=== PATIENT | female | born 1955 | race Caucasian/White ===

== ENCOUNTER → 2016-09-08 | Day surgery (SDC) | payer MEDICARE, OTHER ==
[~2016-09-08] MED LIST: BUPR100T8 PO; CELE200C PO; CITA40TA12 PO; COLE1TAB PO; CYCL10TA2 PO; DOCU100T11 PO; FERR325T58 PO; HYDR50TA6 PO; HYDROmorphone 2 MG/ML VIAL IV PRN; LEVO100T5 PO; LIDOCAINE 1% 1 ML SYRINGE. ID PRN; LIDOCAINE 2% PF Vial for OR 5 ML VIAL. ONE; MORPHINE SULFATE 2 MG/ML DISP.SYRIN. IV PRN; MULT-245 PO; OMEP20TA PO; ONDANSETRON PF 4 MG/2 ML VIAL. IV PRN; OXYC-250 PO; PROAIR HFA8.5 GM IH; PROCHLORPERAZINE 10 MG/2 ML VIAL. IV PRN; PROPOFOL 0 ML IV ONE; PROPOFOL 20 ML IV ONE; SERT100T PO; SERT100T8 PO; SERT50TA PO; TRAZ100T12 PO; VARE1TAB21 PO; WARF-78 PO; fentaNYL PF VIAL 100 MCG/2 ML VIAL IV PRN
[2016-09-08] MEDS: IV RINGERS,LACTATED 1000ML 1,000 ML IV SCH (12:41)
[2016-09-08 13:44] VITALS: BP 98/51
--- NOTE | 2016-09-09 01:28 | HP ---
ADMIT DATE: 09/08/2016 REFERRING PHYSICIAN: Mitzi Vallejo APRN HISTORY OF PRESENT ILLNESS: This is a 61-year-old female whose past medical history is significant for hypothyroidism, COPD, gastroesophageal reflux disease as well as osteoarthrosis, status post knee replacement, depression, dysphagia, ovarian cancer, status post hysterectomy, thyroid disease, who is seen with recurrent dysphagia for solids in the cervical sternal locations. Risk factors for reflux are positive for alcohol, nicotine and caffeine. She does take omeprazole 20 mg daily. There has been no melena, hematemesis and/or weight loss. With the continued dysphagia, she requests further evaluation and possible dilatation. PAST MEDICAL HISTORY: Hypertension, hyperlipidemia, COPD, osteoarthrosis, history of colon polyps, ovarian cancer. ALLERGIES: None. MEDICATIONS: Include ProAir, bupropion, hydrochlorothiazide, levothyroxine, omeprazole, Percocet, Zoloft and Chantix. SOCIAL HISTORY: She is a drinker and smoker. PAST SURGICAL HISTORY: Status post hysterectomy, tonsillectomy and knee replacement. REVIEW OF SYSTEMS: Per records. PHYSICAL EXAMINATION: GENERAL: Reveals a well-nourished, well-developed female. VITAL SIGNS: Temp is 97.4, pulse ____, respirations 18. HEENT: Reveals a normocephalic, atraumatic head. Pupils and extraocular movements are not tested. Sclerae anicteric. NECK: Supple. LUNGS: Clear. CARDIOVASCULAR: Reveals S1, S2 without S3, S4 or appreciable murmur. ABDOMEN: Reveals a soft abdomen with normal bowel sounds, without appreciable hepatosplenomegaly. Multiple surgical incisions. EXTREMITIES: Reveals no cyanosis, clubbing or edema. IMPRESSION: Dysphagia, heartburn, most likely secondary to gastroesophageal reflux disease, Zuñiga's, achalasia, malignancy, and/or eosinophilic esophagitis are on the differential as well as a Schatzki's ring. Therefore, recommend upper endoscopy, possible biopsy and dilatation. Risks and benefits of the procedure including the risk of hemorrhage or perforation at the time of the operation have been discussed with the patient. She is willing to proceed at this time. I would like to thank Mitzi Vallejo for allowing us to consult and participate in this patient's care. BRYAN FELIPE MD DR: OLGA/kendra JOB#: [id number] / [id number] MITZI Burgos APRN
--- NOTE | 2016-09-12 15:46 | PATHOLOGY ---
PATHOLOGY REPORT * * * * * * * * FINAL DIAGNOSIS: Esophagus, distal, biopsy: - Fragments of squamous epithelium with no significant histopathologic diagnosis. - No columnar epithelium present. (NDAEGEM:timothy; d/t: 09/12/2016) REPORT ELECTRONICALLY SIGNED BY: Aranza Lockwood M.D. DATE/TIME: 09/12/2016 15:46 * * * * * * * * GROSS PATHOLOGY: Received in formalin labeled "Allison Guerin distal esophagus biopsy," are five segments of guido soft tissue measuring 1.0 x 0.8 x 0.1 cm in aggregate dimensions and ranging from 0.2 to 0.8 cm in maximum dimension. The specimen is submitted entirely in cassette A1. (CAA; 09/09/2016) INITIAL CPT CODE(S): A; 38373 Professional services performed [place] [address] Technical services performed by [facility] at [address] [place] [address]. SPECIMEN(S) RECEIVED: A.Distal esophagus biopsy CLINICAL HISTORY: Abdominal pain PATIENT: ALLISON GUERIN /AGE: 5 1955 (Age: 61) PATIENT #: [id number] ALT CASE #: SPECIMEN COLLECTION DATE: 09/08/2016 SPECIMEN RECEIVED DATE: 09/08/2016 [facility] - [address] [place] [address] - PHONE: [phone] * * * END OF REPORT * * *
== END | disposition home or self-care (01) ==
LOC: ENDOS 12:11
PROVIDERS: ATTEND Internal Medicine Gastroenterology
DX: K22.2 Esophageal obstruction (principal); K21.0 Gastro-esophageal reflux disease with esophagitis; K29.50 Unspecified chronic gastritis without bleeding; J44.9 Chronic obstructive pulmonary disease, unspecified; J45.909 Unspecified asthma, uncomplicated; E03.9 Hypothyroidism, unspecified; F41.9 Anxiety disorder, unspecified; F32.9 Major depressive disorder, single episode, unspecified; Z90.710 Acquired absence of both cervix and uterus; Z96.652 Presence of left artificial knee joint; Z72.89 Other problems related to lifestyle; Z86.14 Personal history of Methicillin resistant Staphylococcus aureus infection
CPT/HCPCS: 43239; 43450; 88305; J2704

== ENCOUNTER → 2016-10-17 | Outpatient (CLI) | payer MEDICARE, OTHER ==
[2016-09-08 13:44] VITALS: BP 98/51
[~2016-10-17] MED LIST changes: -HYDROmorphone 2 MG/ML VIAL IV PRN; -LIDOCAINE 1% 1 ML SYRINGE. ID PRN; -LIDOCAINE 2% PF Vial for OR 5 ML VIAL. ONE; -MORPHINE SULFATE 2 MG/ML DISP.SYRIN. IV PRN; -OMEP20TA PO; +OMEP20TA8 PO; -ONDANSETRON PF 4 MG/2 ML VIAL. IV PRN; -OXYC-250 PO; +OXYC-328 PO; -PROCHLORPERAZINE 10 MG/2 ML VIAL. IV PRN; -PROPOFOL 0 ML IV ONE; -PROPOFOL 20 ML IV ONE; -fentaNYL PF VIAL 100 MCG/2 ML VIAL IV PRN
--- NOTE | 2016-10-17 09:45 | RAD ---
Examination: Gastric Emptying Scintigraphy. Comparison: None History: Bloating, epigastric pain for 2 months Radiopharmaceutical: 2 mCi Tc-99m sulfur colloid ingested with solid meal Findings: A routine solid-phase gastric emptying scintigraphy examination was performed. Anterior abdominal images were obtained. Geometric mean analysis was utilized to calculate a gastric emptying percentage. The total gastric emptying is 24%. T half of 120 minutes. Impression: Mild delay in gastric emptying.
== END | disposition home or self-care (01) ==
LOC: NM 06:36
PROVIDERS: ATTEND Internal Medicine Gastroenterology
DX: K30 Functional dyspepsia (principal)
CPT/HCPCS: 78264; A9541

== ENCOUNTER → 2016-10-25 | Outpatient (CLI) | payer MEDICARE, OTHER ==
[2016-09-08 13:44] VITALS: BP 98/51
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
== END | disposition home or self-care (01) ==
LOC: RAD 11:12
PROVIDERS: ATTEND Nurse Practitioner Family
DX: M25.512 Pain in left shoulder (principal); Y92.410 Unspecified street and highway as the place of occurrence of the external cause
CPT/HCPCS: 73030

== ENCOUNTER → 2016-10-25 | Outpatient (CLI) | payer MEDICARE, OTHER ==
[2016-09-08 13:44] VITALS: BP 98/51
--- NOTE | 2016-10-25 13:04 | RAD ---
Indication: Abdominal pain and bloating. Time of exam 12:25 PM There is a large amount of stool throughout the colon consistent with constipation. The bowel gas pattern appears nonobstructed. No free air is seen. The lungs are clear. Impression: Constipation. No other abnormality is detected.
== END | disposition home or self-care (01) ==
LOC: RAD 11:18
PROVIDERS: ATTEND Internal Medicine Gastroenterology
DX: R10.9 Unspecified abdominal pain (principal); R11.10 Vomiting, unspecified; R14.0 Abdominal distension (gaseous)
CPT/HCPCS: 74022

== ENCOUNTER → 2016-12-06 | Outpatient (CLI) | payer MEDICARE, OTHER ==
[2016-09-08 13:44] VITALS: BP 98/51
--- NOTE | 2016-12-06 15:41 | RAD ---
DATE: 12/06/2016 EXAM: DIGITAL SCREEN BILAT W/CAD HISTORY: Screening study. COMPARISON: 11/10/2009 This study was interpreted with the benefit of Computerized Aided Detection (CAD). FINDINGS: Digital MLO and CC mammograms of both breasts were obtained. Comparison study is dated 11/10/2009. The breast parenchyma is composed of scattered fibroglandular densities which can obscure a lesion on mammography (breast density code B). No spiculated mass is seen. No malignant appearing calcification or area of architectural distortion is noted. Since the previous examination there has been no significant interval change. IMPRESSION: BI-RADS Category 1, negative. There is no mammographic evidence of malignancy. Routine yearly screening mammography is recommended for follow-up. BI-RADS CATEGORY: 1 NEGATIVE RECOMMENDED FOLLOW-UP: 12M 12 MONTH FOLLOW-UP PQRS compliance statement: Patient information was entered into a reminder system with a target due date 12/06/2017 for the next mammogram. Mammography is a sensitive method for finding small breast cancers, but it does not detect them all and is not a substitute for careful clinical examination. A negative mammogram does not negate a clinically suspicious finding and should not result in delay in biopsying a clinically suspicious abnormality. "Our facility is accredited by the [employer] Mammography Program."
== END | disposition home or self-care (01) ==
LOC: MAMMO 12:44
PROVIDERS: ATTEND Family Medicine
DX: Z12.31 Encounter for screening mammogram for malignant neoplasm of breast (principal)
CPT/HCPCS: G0202; 77067

== ENCOUNTER 2017-10-08 23:20 | Emergency (ER) | payer OTHER, MEDICARE | END 2017-10-09 00:21 | disposition home or self-care (01) | LOC: ER 23:20 | DX: S93.401A Sprain of unspecified ligament of right ankle, initial encounter (principal); X50.9XXA Other and unspecified overexertion or strenuous movements or postures, initial encounter; Y93.89 Activity, other specified; Y99.8 Other external cause status; Y92.89 Other specified places as the place of occurrence of the external cause | CPT/HCPCS: 73610; 99284 ==

== ENCOUNTER → 2018-02-15 | Day surgery (SDC) | payer OTHER ==
[~2018-02-15] MED LIST changes: +ACET-704 PO; +IV RINGERS,LACTATED 1000ML 1,000 ML IV SCH; +LIDOCAINE 1% PF 2 ML VIAL. ID PRN; +MELO15TA23 PO; +MIDAZOLAM HCL/PF 2 MG/2 ML VIAL. IV PRN; +PROPOFOL 20 ML IV ONE; +TRAZ-86 PO; -TRAZ100T12 PO; +fentaNYL PF VIAL 100 MCG/2 ML VIAL IV PRN
[2018-02-15 13:50] VITALS: BP 139/81
--- NOTE | 2018-02-16 04:24 | CONS ---
DATE OF CONSULTATION: 02/15/2018 REFERRING PHYSICIAN: Mitzi Vallejo APRN REASON: Recurrent dysphagia. HISTORY OF PRESENT ILLNESS: A 62-year-old female with past medical history significant for hypothyroidism, COPD, gastroesophageal reflux disease, osteoporosis, and history of colon polyps, was seen with recurrent dysphagia for solids sticking in the subcervical location. Previous upper endoscopy with dilatation was extremely helpful, worked until recently, approximately 18 months later, mainly for solids. Weight and appetite were stable. There has been no change in weight, no bleeding. She is without additional complaints. PAST MEDICAL HISTORY: Hypothyroidism, COPD, osteoarthrosis, history of colonic polyps, GERD. ALLERGIES: None. MEDICATIONS: Include albuterol, levothyroxine, meloxicam, omeprazole, and Zoloft. FAMILY AND SOCIAL HISTORY: Significant for colon cancer in grandfather, colon polyps in multiple family members, myocardial infarctions. REVIEW OF SYSTEMS: Per records. SOCIAL HISTORY: She is a smoker and drinker. PAST SURGICAL HISTORY: Status post tonsillectomy, knee replacement, hiatal hernia surgery, hysterectomy, and inguinal hernia repair. PHYSICAL EXAMINATION: GENERAL: Reveals a well-nourished, well-developed female who is alert, cooperative, in no acute distress. VITAL SIGNS: Temperature 98.3, pulse 65, respiratory rate is 18. HEENT: Normocephalic and atraumatic. Pupils and extraocular movements are not tested. Sclerae are anicteric. NECK: Supple. LUNGS: Clear. CARDIOVASCULAR: Reveals an S1, S2 with appreciable murmur. ABDOMEN: Soft abdomen, normal bowel sounds without appreciable hepatosplenomegaly. EXTREMITIES: Reveal no cyanosis, clubbing, edema. IMPRESSION: Dysphagia, most likely secondary to recurrent Schatzki's ring, achalasia, malignancy, and eosinophilic esophagitis are on the differential. Recommend upper endoscopy with possible biopsy and dilatation. Risks and benefits have been discussed. The patient is willing to proceed at this time. BRYAN FELIPE MD DR: OLGA/kendra JOB#: [id number] / [id number]
== END | disposition home or self-care (01) ==
LOC: ENDOS 12:02
PROVIDERS: ATTEND Internal Medicine Gastroenterology
DX: K22.2 Esophageal obstruction (principal); K21.0 Gastro-esophageal reflux disease with esophagitis; K29.50 Unspecified chronic gastritis without bleeding; E03.9 Hypothyroidism, unspecified; J44.9 Chronic obstructive pulmonary disease, unspecified; M19.90 Unspecified osteoarthritis, unspecified site; Z86.010 Personal history of colon polyps; Z79.899 Other long term (current) drug therapy; Z83.71 Family history of colonic polyps; Z82.49 Family history of ischemic heart disease and other diseases of the circulatory system; Z72.89 Other problems related to lifestyle; F17.200 Nicotine dependence, unspecified, uncomplicated; Z90.710 Acquired absence of both cervix and uterus; Z98.890 Other specified postprocedural states; Z96.652 Presence of left artificial knee joint
CPT/HCPCS: 43235; 43450; J2704

== ENCOUNTER → 2018-03-21 | Outpatient (CLI) | payer OTHER ==
[2018-02-15 13:50] VITALS: BP 139/81
[~2018-03-21] MED LIST changes: -IV RINGERS,LACTATED 1000ML 1,000 ML IV SCH; -LIDOCAINE 1% PF 2 ML VIAL. ID PRN; -MIDAZOLAM HCL/PF 2 MG/2 ML VIAL. IV PRN; -PROPOFOL 20 ML IV ONE; -fentaNYL PF VIAL 100 MCG/2 ML VIAL IV PRN
--- NOTE | 2018-03-21 16:30 | RAD ---
Chest, 2 views, 03/21/2018: HISTORY: Shortness of breath, COPD The heart size and pulmonary vascularity are normal. No pulmonary infiltrate is seen. There is no evidence of pleural fluid. Vertebroplasty change is noted at approximately the L1 level. IMPRESSION: No acute cardiopulmonary abnormality is detected. Electronically signed by: Shay Bagley MD (03/21/2018 4:26 PM) [facility]
== END | disposition home or self-care (01) ==
LOC: RAD 11:28
PROVIDERS: ATTEND Internal Medicine Critical Care Medicine
DX: R06.02 Shortness of breath (principal); J44.9 Chronic obstructive pulmonary disease, unspecified; F17.210 Nicotine dependence, cigarettes, uncomplicated
CPT/HCPCS: 71046

== ENCOUNTER → 2018-03-28 | Outpatient (CLI) | payer OTHER ==
[2018-02-15 13:50] VITALS: BP 139/81
[~2018-03-28] MED LIST changes: -OXYC-328 PO; +OXYC1TAB22 PO; +ZOLPIDEM 5 MG TABLET. PO ONE
--- NOTE | 2018-03-29 13:50 | SLEEP ---
DATE OF STUDY: 03/28/2018 ATTENDING PHYSICIAN: Dr. Juana Baig. The patient is 62-year-old who weighs 160 pounds with a BMI of 30. The patient's Cedar score was 9. The patient underwent sleep study at [facility]. This was a diagnostic study. During the night study, the patient spent 411 minutes in bed and slept for 335 minutes with a sleep efficiency of 81%. Sleep latency was 12 minutes with a REM latency of 129 minutes. Overall, sleep architecture showed normal stage 1 sleep, increased stage 2 sleep, increased slow wave and reduced REM sleep. During the night study, the patient had only 1 obstructive apnea, 9 mixed apneas, no central apneas and 10 hypopneas. The patient's apnea hypopnea index was only 4 per hour for the entire night. Supine index 1 per hour and REM index of 17 per hour. Review of nocturnal oximetry study revealed an average oxygen saturation of 91% with the lowest of 80%. 39 minutes were spent in oxygen saturation of less than 90%. There was a sustained pattern of hypoxia suggesting hypoventilation. EKG monitoring revealed a paced rhythm, average heart rate of 60 beats per minute. PLMS were seen at index of 153 per hour and 17 per hour caused EEG arousals. Due to low AHI, the patient did not meet the split night criteria for CPAP initiation. IMPRESSION: 1. No clinically significant sleep disorder breathing. The patient's AHI for the entire night was 4 per hour. 2. Severe PLMS at an index of 153 per hour and 17 per hour caused EEG arousals. 3. Sustained nocturnal hypoxia suggesting hypoventilation. RECOMMENDATIONS: 1. The patient did not meet the split night criteria for CPAP initiation. 2. The patient would benefit from 1-2 liters of oxygen at nighttime. 3. The patient should also be further evaluated for symptoms of restless legs during the day and if present, it can be treated with dopaminergic agonist agents. 4. Weight loss is advised. 5. Avoid SIDE LASTER TACK depressants. PARISH JOSE MD DR: MIRACLE/kendra JOB#: [id number] / [id number] JUANA Snowden MD
== END | disposition home or self-care (01) ==
LOC: SLPLAB 18:48
PROVIDERS: ATTEND Internal Medicine Critical Care Medicine
DX: G47.30 Sleep apnea, unspecified (principal)
CPT/HCPCS: 95810

== ENCOUNTER 2018-07-10 10:07 | Emergency (ER) | payer OTHER ==
[~2018-07-10] VITALS: Ht 157.5 cm; Wt 68.9 kg
[~2018-07-10 10:07] MED LIST changes: +ALBU2.5V8 IH; -PROAIR HFA8.5 GM IH; -ZOLPIDEM 5 MG TABLET. PO ONE
--- NOTE | 2018-07-10 11:10 | RAD ---
Three-view left knee and three-view left ankle dated 07/10/2018. No comparison available. Clinical data indication: Pain after fall yesterday. FINDINGS: 3 views left knee show evidence of prior total knee arthroplasty with longstem femoral and tibial components. No periprosthetic fracture or malalignment. Postsurgical changes of the patella. No apparent joint effusion. 3 views of left ankle show normal bony alignment. No displaced fracture. No acute osseous or articular abnormality. Suspected small ankle joint effusion with diffuse soft tissue swelling. Mild degenerative change of the joints of the midfoot. Talar dome is intact. Subtle radiolucency at the tip of the medial malleolus. IMPRESSION: 1. Possible small nondisplaced fracture through the tip of the medial malleolus. 2. Ankle joint effusion with diffuse soft tissue swelling. 3. No apparent acute abnormality of the knee. Status post total knee arthroplasty. Electronically signed by: Scott Kiser MD (07/10/2018 11:07 AM) [facility]
[2018-07-10] MEDS ORDERED: HYDR-3164 PO (12:41)
--- NOTE | 2018-07-10 12:41 | PHYS DOC ---
Past Medical History Past Medical History: Anxiety, COPD Additional Past Medical Histor: thyroid, gastric ulcer Past Surgical History: Hysterectomy, Knee Replacement, Tonsillectomy Alcohol Use: Occasionally Drug Use: None Adult General Chief Complaint Chief Complaint: MECHANICAL FALL HPI HPI Patient is a 62 year old female with history of COPD, anxiety, who presents to the ED today complaining of 8 out of 10 left knee and left ankle pain that began yesterday after she tripped on a hunger at the [employer] and fell. Patient denies hitting her head on the ground, denies any loss of consciousness. She states the pain is worse on weight-bearing. Describes the pain as sharp and intermittent Review of Systems Review of Systems Constitutional: Denies fever or chills [] Musculoskeletal: Reports left ankle and left knee pain Integument: Denies rash or skin lesions [] Neurologic: Denies headache, focal weakness or sensory changes [] All other systems were reviewed and found to be within normal limits, except as documented in this note. Allergies Allergies Allergies Coded Allergies Type Severity Reaction Last Updated Verified No Known Medication Allergies Allergy Unknown 02/15/18 Yes Physical Exam Physical Exam Constitutional: Well developed, well nourished, no acute distress, non-toxic appearance. [] Skin: Warm, dry, no erythema, no rash. [] Back: No tenderness, no CVA tenderness. [] Extremities: Left ankle and left knee with no obvious deformity, old healed surgical incision noted midline left anterior knee. Full range of motion to the left knee, full range of motion to the left ankle. Tenderness on palpation of the left lateral during physical exam. Full range of motion to the left toes. + 2 left pedal pulse. Cap refill less than 2 seconds the left lower extremity. Neurologic: Alert and oriented X 3, normal motor function, normal sensory function, no focal deficits noted. [] Psychologic: Affect normal, judgement normal, mood normal. [] Current Patient Data Vital Signs Vital Signs Date Time Temp Pulse Resp B/P (MAP) Pulse Ox O2 Delivery O2 Flow Rate FiO2 07/10/18 10:16 97.2 70 22 132/80 (97) 94 Room Air 97.2 EKG EKG [] Radiology/Procedures Radiology/Procedures []PROCEDURE: ANKLE LEFT 3V Three-view left knee and three-view left ankle dated 07/10/2018. No comparison available. Clinical data indication: Pain after fall yesterday. FINDINGS: 3 views left knee show evidence of prior total knee arthroplasty with longstem femoral and tibial components. No periprosthetic fracture or malalignment. Postsurgical changes of the patella. No apparent joint effusion. 3 views of left ankle show normal bony alignment. No displaced fracture. No acute osseous or articular abnormality. Suspected small ankle joint effusion with diffuse soft tissue swelling. Mild degenerative change of the joints of the midfoot. Talar dome is intact. Subtle radiolucency at the tip of the medial malleolus. IMPRESSION: 1. Possible small nondisplaced fracture through the tip of the medial malleolus. 2. Ankle joint effusion with diffuse soft tissue swelling. 3. No apparent acute abnormality of the knee. Status post total knee arthroplasty. Electronically signed by: Scott Kiser MD (07/10/2018 11:07 AM) [facility] DICTATED and SIGNED BY: SCOTT KISER MD DATE: 07/10/18 110 Course & Med Decision Making Course & Med Decision Making Pertinent Labs and Imaging studies reviewed. (See chart for details) This is a 62-year-old female presenting to the ED today with left knee and left ankle pain status post falling yesterday. Left knee x-rays interpreted by radiologist are negative for any acute findings, left ankle x-rays were noted for possible small nondisplaced fracture through the tip of the medial malleolus. Patient was placed in a posterior leg splint by the technical delivery manager, neurovascular exam done by me is normal. Crutches provided. Ice elevation encouraged. Follow-up with orthopedic doctor in the course of this week. Dragon Disclaimer Dragon Disclaimer This electronic medical record was generated, in whole or in part, using a voice recognition dictation system. Departure Departure Impression: Primary Impression: Fall from standing Additional Impressions: Contusion of left knee Medial malleolar fracture Disposition: 01 HOME, SELF-CARE Condition: STABLE Referrals: ANNA GAMBINO MD (PCP) MADELYN LAUREN MD call his office today and set up a follow up appointment Patient Instructions: Ankle Fracture, [id number] Additional Instructions: You were evaluated in the emergency room for knee and ankle pain after falling. Your left ankle x-ray shows you possibly could have an ankle fracture. We put you in a splint. Please contact the provided Orthopedic doctor's office today or [facility] and set up a follow-up appointment. Try to ice and elevate the extremity. Take the prescribed pain medicine as needed for pain. Scripts Hydrocodone/Apap 5-325 (NORCO 5-325 TABLET) 1 Each Tablet 1 TAB PO Q4-6HRS, #12 TAB Prov: SEBASTIAN PEREZ APRN 07/10/18 Problem Qualifiers Primary Impression: Fall from standing Encounter type: initial encounter Qualified Codes: W19.XXXA - Unspecified fall, initial encounter Additional Impressions: Contusion of left knee Encounter type: initial encounter Qualified Codes: S80.02XA - Contusion of left knee, initial encounter Medial malleolar fracture Encounter type: initial encounter Fracture type: closed Fracture alignment : nondisplaced Laterality: left Qualified Codes: S82.55XA - Nondisplaced fracture of medial malleolus of left tibia, initial encounter for closed fracture SEBASTIAN PEREZ APRN Jul 10, 2018 12:41
[2018-07-10 12:52] VITALS: BP 156/80
== END 2018-07-10 12:53 | disposition home or self-care (01) ==
LOC: ER 10:07
DX: S82.55XA Nondisplaced fracture of medial malleolus of left tibia, initial encounter for closed fracture (principal); S80.02XA Contusion of left knee, initial encounter; J44.9 Chronic obstructive pulmonary disease, unspecified; W01.0XXA Fall on same level from slipping, tripping and stumbling without subsequent striking against object, initial encounter; Y93.89 Activity, other specified; Y92.512 Supermarket, store or market as the place of occurrence of the external cause; Y99.8 Other external cause status
CPT/HCPCS: 29515; 73562; 73610; 99283

== ENCOUNTER 2020-01-01 11:16 | Emergency (ER) | payer MEDICARE, MEDICAID ==
[~2020-01-01] VITALS: Ht 157.5 cm; Wt 74.1 kg
[~2020-01-01 11:16] MED LIST changes: +HYDR-3164 PO; +TRAZ-123 PO; -TRAZ-86 PO; -WARF-78 PO; +WARF5TAB2 PO
[2020-01-01] MEDS ORDERED: LIDOCAINE 1%/EPI 1:100,000 20 ML VIAL. INJ ONE (12:00)
[2020-01-01] MEDS ORDERED: DIPH,PERTUSS(ACELL),TET VAC/PF 0.5 ML SYRINGE. VAX IM ONE (12:00)
--- NOTE | 2020-01-01 12:53 | RAD ---
CT HEAD INDICATION: Reason: HIT HEAD ON CAPINET DOOR / Spl. Instructions: / History: COMPARISON: None Available. Exposure: One or more of the following individualized dose reduction techniques were utilized for this examination: 1. Automated exposure control 2. Adjustment of the mA and/or kV according to patient size 3. Use of iterative reconstruction technique TECHNIQUE: 5 mm contiguous axial images were obtained from the skull base to the vertex in both bone and soft tissue algorithm. FINDINGS: No abnormal attenuation within the brain parenchyma. No evidence of acute intracranial hemorrhage. No extra-axial fluid collections. No mass effect or midline shift. Ventricular size is appropriate. Basal cisterns are patent. No fractures identified.Mobley-white differentiation is preserved.Globes and orbits are within normal limits. Opacification of the left mastoid air cells. IMPRESSION: 1. No acute intracranial findings. 2. Opacification of the left mastoid air cells with fluid in the mastoid air cells or chronic otitis media. Electronically signed by: Rick Winslow MD (01/01/2020 12:50 PM) [id number]
[2020-01-01 13:10] VITALS: BP 146/65
--- NOTE | 2020-01-01 13:30 | PHYS DOC ---
Past Medical History Past Medical History: Anxiety, COPD Additional Past Medical Histor: thyroid, gastric ulcer Past Surgical History: Hysterectomy, Knee Replacement, Tonsillectomy Smoking Status: Current Every Day Smoker Alcohol Use: Occasionally Drug Use: None General Adult EDM: Chief Complaint: LACERATION/AVULSION HPI: HPI: Patient is a 64 year old female who was brought here by EMS from home due to head injury. Patient opened a kitchen cabinet, she forgot that it was open and when she stood up she hit her head against the cabinet door. She denies loss of consciousness. Not sure when HER LAST TETANUS SHOT WAS. Review of Systems: Review of Systems: Constitutional: Denies fever or chills. [] Eyes: Denies change in visual acuity. [] HENT: Denies nasal congestion or sore throat. [] Respiratory: Denies cough or shortness of breath. [] Cardiovascular: Denies chest pain or edema. [] GI: Denies abdominal pain, nausea, vomiting, bloody stools or diarrhea. [] : Denies dysuria. [] Musculoskeletal: Denies back pain or joint pain. [] Integument: Denies rash. [] Neurologic: Positive for headache, focal weakness or sensory changes. [] Endocrine: Denies polyuria or polydipsia. [] Lymphatic: Denies swollen glands. [] Psychiatric: Denies depression or anxiety. [] Heart Score: Risk Factors: Risk Factors: DM, Current or recent (<one month) smoker, HTN, HLP, family history of CAD, obesity. Risk Scores: Score 0 - 3: 2.5% MACE over next 6 weeks - Discharge Home Score 4 - 6: 20.3% MACE over next 6 weeks - Admit for Clinical Observation Score 7 - 10: 72.7% MACE over next 6 weeks - Early Invasive Strategies Current Medications: Current Medications Medications (Trade) Dose Ordered Sig/Bishnu Start Time Stop Time Status Last Admin Dose Admin Diphtheria/ Tetanus/Acell Pertussis (ADACEL TDap SYRINGE) 0.5 ml ONCE ONCE 01/01/20 12:00 01/01/20 12:04 DC Lidocaine/ Epinephrine (LIDOCAINE 1%-EPI 1:100,000 Multi-Dose) 20 ml 1X ONCE 01/01/20 12:00 01/01/20 12:04 DC 01/01/20 12:24 20 ML Allergies: Allergies: Allergies Coded Allergies Type Severity Reaction Last Updated Verified No Known Medication Allergies Allergy Unknown 02/15/18 Yes Physical Exam: PE: Constitutional: Well developed, well nourished, no acute distress, non-toxic appearance. [] HENT: Normocephalic, 4 cm linear laceration on anterior scalp area, actively bleeding, bilateral external ears normal, oropharynx moist, no oral exudates, nose normal. [] Eyes: PERRLA, EOMI, conjunctiva normal, no discharge. [] Neck: Normal range of motion, no tenderness, supple, no stridor. [] Cardiovascular:Heart rate regular rhythm, no murmur [] Lungs & Thorax: Bilateral breath sounds clear to auscultation [] Abdomen: Bowel sounds normal, soft, no tenderness, no masses, no pulsatile masses. [] Skin: Warm, dry, no erythema, no rash. [] Back: No tenderness, no CVA tenderness. [] Extremities: No tenderness, no cyanosis, no clubbing, ROM intact, no edema. [] Neurologic: Alert and oriented X 3, normal motor function, normal sensory function, no focal deficits noted. [] Psychologic: Affect normal, judgement normal, mood normal. [] Current Patient Data: Vital Signs: Vital Signs Date Time Temp Pulse Resp B/P (MAP) Pulse Ox O2 Delivery O2 Flow Rate FiO2 01/01/20 11:20 98.1 93 20 177/98 (124) 95 Room Air 98.1 EKG: EKG: [] Radiology/Procedures: Radiology/Procedures: [facility] [address] [place] [address] IMAGING REPORT Signed PATIENT: NADIA QUILES ACCOUNT: [id number] : 1955 LOCATION: ER AGE: 64 SEX: F EXAM STATUS: REG ER ORD. PHYSICIAN: HARSH CHAVEZ DO REASON: HIT HEAD ON CAPINET DOOR PROCEDURE: CT HEAD WO CONTRAST CT HEAD INDICATION: Reason: HIT HEAD ON CAPINET DOOR / Spl. Instructions: / History: COMPARISON: None Available. Exposure: One or more of the following individualized dose reduction techniques were utilized for this examination: 1. Automated exposure control 2. Adjustment of the mA and/or kV according to patient size 3. Use of iterative reconstruction technique TECHNIQUE: 5 mm contiguous axial images were obtained from the skull base to the vertex in both bone and soft tissue algorithm. FINDINGS: No abnormal attenuation within the brain parenchyma. No evidence of acute intracranial hemorrhage. No extra-axial fluid collections. No mass effect or midline shift. Ventricular size is appropriate. Basal cisterns are patent. No fractures identified.Mobley-white differentiation is preserved.Globes and orbits are within normal limits. Opacification of the left mastoid air cells. IMPRESSION: 1. No acute intracranial findings. 2. Opacification of the left mastoid air cells with fluid in the mastoid air cells or chronic otitis media. Electronically signed by: Rick Winslow MD (01/01/2020 12:50 PM) [id number] DICTATED and SIGNED BY: RICK WINSLOW MD DATE: 01/01/20 1250 Laceration Procedure: Location:anterior scalp Anesthesia: 20 ml of 1% lidocaine with epi total lenght of laceration: 4 cm Number of sutures : 8 hortensia Suture Material: staple Technique: simple interruptus Patient tolerated procedure well. The wound was dressed with: gauze Course & Med Decision Making: Course & Med Decision Making Pertinent Labs and Imaging studies reviewed. (See chart for details) [] Dragon Disclaimer: Dragon Disclaimer: This electronic medical record was generated, in whole or in part, using a voice recognition dictation system. Departure Departure Impression: Primary Impression: Scalp laceration Additional Impression: Head injury Disposition: 01 HOME, SELF-CARE Condition: IMPROVED Referrals: ANNA GAMBINO MD (PCP) please follow up with your doctor in 7 days for hortensia removal Patient Instructions: Head Injury, Adult, Laceration Care, Adult, Staple Care and Removal Additional Instructions: Thank you for visiting our Emergency Department. We appreciate you trusting us with your care. If any additional problems come up don't hesitate to return to visit us. Please follow up with your primary care provider so they can plan additional care if needed and know about the problem that you had. If symptoms worsen come back to the Emergency Department. Any concerning symptoms that start such as chest pain, shortness of air, weakness or numbness on one side of the body, running high fevers or any other concerning symptoms return to the ER. Biation of Admission Dx: Justifications for Admission: Justification of Admission Dx: N/A HARSH CHAVEZ DO Jan 01, 2020 13:30
== END 2020-01-01 13:45 | disposition home or self-care (01) ==
LOC: ER 11:16
DX: S01.01XA Laceration without foreign body of scalp, initial encounter (principal); J44.9 Chronic obstructive pulmonary disease, unspecified; F17.200 Nicotine dependence, unspecified, uncomplicated; W22.8XXA Striking against or struck by other objects, initial encounter; Y93.89 Activity, other specified; Y92.090 Kitchen in other non-institutional residence as the place of occurrence of the external cause; Y99.8 Other external cause status
CPT/HCPCS: 12002; 70450; 90471; 90715; 99284; J3490

== ENCOUNTER → 2021-05-12 | Day surgery (SDC) | payer OTHER ==
[~2021-05-12] VITALS: Ht 157.5 cm; Wt 81.0 kg
[~2021-05-12] MED LIST changes: +CYCL10TA19 PO; -CYCL10TA2 PO; +FLUT1BLS15 IH; -HYDR50TA6 PO; +HYDR50TA9 PO; +IV RINGERS,LACTATED 1000ML 1,000 ML IV SCH; +PROPOFOL 10 MG/ML (20ML) VIAL. IV ONE; +SERT-268 PO; -SERT100T8 PO
[2021-05-12 07:25] VITALS: BP 127/86
[2021-05-12 09:04] VITALS: BP 129/68
--- NOTE | 2021-05-12 15:59 | CONS ---
DATE OF CONSULTATION: 05/12/2021 REASON FOR CONSULTATION: Epigastric abdominal pain, colorectal screening. HISTORY OF PRESENT ILLNESS: A 65-year-old female whose past medical history is significant for hypothyroidism, gastroesophageal reflux disease as well as hypertension, history of esophageal stricture, seen for recurrent epigastric pain. It is worse with meals, been maintained on Prilosec 20 mg b.i.d. for reflux and a stricture with persistent discomfort. Weight has been stable despite poor appetite. She has also had a family history of colon cancer, is here for a screening colon. With continued issues, she requests additional evaluation. PAST MEDICAL HISTORY: Asthma, hypothyroidism, GERD, COPD. ALLERGIES: None. MEDICATIONS: Include Trelegy Ellipta, levothyroxine, omeprazole. PAST SURGICAL HISTORY: Hernia repair, joint replacement, hiatal hernia surgery, knee replacement. FAMILY HISTORY: Significant for colon cancer. REVIEW OF SYSTEMS: Per records. PHYSICAL EXAMINATION: GENERAL: Reveals a well-nourished, well-developed female who is alert, cooperative, in no acute distress. VITAL SIGNS: Temperature 98.3, pulse 70, respiratory rate 20. LUNGS: Clear. CARDIOVASCULAR: Reveals an S1, S2, without S3, S4 or appreciable murmur. ABDOMEN: Reveals a soft abdomen. Normoactive bowel sounds without appreciable hepatosplenomegaly with epigastric tenderness to deep palpation. EXTREMITIES: Reveals no cyanosis, clubbing or edema. IMPRESSION AND PLAN: 1. Epigastric abdominal pain with history of stricture, peptic ulcer disease, gallbladder disease malignancy in the differential. Recommend upper endoscopy. 2. Colorectal screening. Risks and benefits of procedure including risk of hemorrhage and perforation were discussed. The patient is willing to proceed at this time. [place] DR: Amanda TID: [id number]
== END | disposition home or self-care (01) ==
LOC: ENDOS 07:05
PROVIDERS: ATTEND Internal Medicine Gastroenterology
DX: Z12.11 Encounter for screening for malignant neoplasm of colon (principal); R10.13 Epigastric pain; K64.0 First degree hemorrhoids; K57.30 Diverticulosis of large intestine without perforation or abscess without bleeding; K29.50 Unspecified chronic gastritis without bleeding; K31.89 Other diseases of stomach and duodenum; K63.89 Other specified diseases of intestine; K21.9 Gastro-esophageal reflux disease without esophagitis; E03.9 Hypothyroidism, unspecified; I11.0 Hypertensive heart disease with heart failure; I50.9 Heart failure, unspecified; J43.9 Emphysema, unspecified; G47.30 Sleep apnea, unspecified; E11.9 Type 2 diabetes mellitus without complications; M19.90 Unspecified osteoarthritis, unspecified site; M81.0 Age-related osteoporosis without current pathological fracture; F41.9 Anxiety disorder, unspecified; F32.9 Major depressive disorder, single episode, unspecified; F17.210 Nicotine dependence, cigarettes, uncomplicated; Z80.0 Family history of malignant neoplasm of digestive organs; Z79.899 Other long term (current) drug therapy; Z98.890 Other specified postprocedural states; Z90.710 Acquired absence of both cervix and uterus; Z72.89 Other problems related to lifestyle
CPT/HCPCS: 43235; 82962; G0105; J2704; 45378

== ENCOUNTER → 2021-05-27 | Outpatient (CLI) | payer OTHER ==
[2021-05-12 09:04] VITALS: BP 129/68
[~2021-05-27] MED LIST changes: -IV RINGERS,LACTATED 1000ML 1,000 ML IV SCH; -PROPOFOL 10 MG/ML (20ML) VIAL. IV ONE
--- NOTE | 2021-05-27 08:36 | RAD ---
EXAM: Abdomen sonogram. HISTORY: Epigastric pain. TECHNIQUE: Sonographic imaging of the abdomen was performed. COMPARISON: None. FINDINGS: The liver is normal in size. No focal hepatic lesion is seen. There is mild hepatic steatos is. The gallbladder is unremarkable. The common bile duct is normal in caliber. The pancreas and infe rior vena cava are obscured due to bowel gas. The right kidney is unremarkable. IMPRESSION: Suspected mild hepatic steatosis. No acute sonographic finding. Electronically signed by: Lotus Briones MD (05/27/2021 8:34 AM) [id number]
--- NOTE | 2021-05-27 09:24 | RAD ---
HEPATOBILIARY SCAN WITH EJECTION FRACTION 05/27/2021 9:21 AM History: Epigastric pain COMPARISON STUDY: Right upper quadrant ultrasound, earlier today Procedure: Serial static images are obtained of the liver and biliary system in the frontal projectio n following IV administration of 5.2 mCi of Technetium 99m Choletec. At approximately 40 minutes the patient refused further imaging. Therefore an ejection fraction could not be calculated. Findings: There is prompt hepatic clearance of tracer from the blood pool. There is homogeneous distr ibution throughout the liver. The gallbladder is initially visualized at approximately 15 minutes. Ga llbladder fills on subsequent images. IMPRESSION: The cystic duct and common bile duct are patent. Negative for acute cholecystitis. Electronically signed by: Terence Funes MD (05/27/2021 9:22 AM) [id number]
== END ==
LOC: US 06:46
PROVIDERS: ATTEND Internal Medicine Gastroenterology
DX: K76.89 Other specified diseases of liver (principal); R10.13 Epigastric pain
CPT/HCPCS: 76705; 78226; A9537; 96374

== ENCOUNTER → 2021-07-21 | Day surgery (SDC) | payer OTHER ==
[~2021-07-21] VITALS: Ht 157.5 cm; Wt 81.1 kg
[~2021-07-21] MED LIST changes: +GLIP5TAB10 PO; +HYDR12.58 PO; +HYDROmorphone 2 MG/ML INJ. IVP PRN; +IPRATRPIUM/ALBUTEROL 0.5/2.5MG 3 ML NEBU. NEB ONE; +IV RINGERS,LACTATED 1000ML 1,000 ML IV SCH; +LIDOCAINE 2% PF 5 ML VIAL. ONE; +MORPHINE SULFATE 2 MG/ML INJ. IVP PRN; +PROCHLORPERAZINE 10 MG/2 ML VIAL. IVP PRN; +PROPOFOL 10 MG/ML (20ML) VIAL. IV ONE; +fentaNYL PF VIAL 100 MCG/2 ML VIAL IVP PRN
[2021-07-21 07:18] VITALS: BP 164/77
--- NOTE | 2021-07-21 08:46 | PDOC2 ---
CONSULT Date of Consult Date of Consult DATE: 07/21/21 TIME: 08:40 Reason for Consult Reason for Consult: abd pain/nausea/hx gerd Identification/Chief Complaint Chief Complaint 65 yo Female is seen with persistent epigastric abd pain and nausea. Prilosec 20 mg bid has helped but not resolved her pain. Minimal dysphagia is noted since her last dilation. No family history of GB disease is noted. With the continued post-prandial pain, she requests further evaluation Past Medical History Cardiovascular: HTN Pulmonary: Asthma, COPD GI: GERD Psych: Depression Musculoskeletal: Osteoarthritis Endocrine: Hypothyroidism Past Surgical History Past Surgical History: Total knee replacement, Tonsillectomy, Hysterectomy, Other Family History Family History: Cancer (esophageal, breast, ovarian), Diabetes, Heart Disease, Other Social History 1 pack per day ALCOHOL: occassional Drugs: None Current Medications Current Medications Current Medications Fentanyl Citrate (Fentanyl 2ml Vial) 25 mcg PRN Q5MIN PRN IVP MILD PAIN 1-3; Start 07/21/21 at 06:00; Stop 07/22/21 at 05:59 Fentanyl Citrate (Fentanyl 2ml Vial) 50 mcg PRN Q5MIN PRN IVP MODERATE PAIN 4- 6; Start 07/21/21 at 06:00; Stop 07/22/21 at 05:59 Morphine Sulfate (Morphine Sulfate) 1 mg PRN Q10MIN PRN IVP SEVERE PAIN 7-10; Start 07/21/21 at 06:00; Stop 07/22/21 at 05:59 Ringer's Solution 1,000 ml @ 30 mls/hr Q24H IV Last administered on 07/21/21at 07:29; Start 07/21/21 at 06:00; Stop 07/21/21 at 17:59 Hydromorphone HCl (Dilaudid) 0.5 mg PRN Q10MIN PRN IVP SEVERE PAIN 7-10, 2nd CHOICE; Start 07/21/21 at 06:00; Stop 07/22/21 at 05:59 Prochlorperazine Edisylate (Compazine) 5 mg PACU PRN PRN IVP NAUSEA, MRX1; Start 07/21/21 at 06:00; Stop 07/22/21 at 05:59 Albuterol/ Ipratropium (Duoneb) 3 ml 1X ONCE NEB Last administered on 07/21/21at 07:33; Start 07/21/21 at 07:30; Stop 07/21/21 at 07:31; Status DC Propofol (Diprivan) 200 mg STK-MED ONCE IV ; Start 07/21/21 at 08:38; Stop 07/21/21 at 08:38; Status DC Lidocaine HCl (Lidocaine Pf 2% Vial) 5 ml STK-MED ONCE .ROUTE ; Start 07/21/21 at 08:38; Stop 07/21/21 at 08:38; Status DC Active Scripts Active Reported Hydrochlorothiazide Tablet (Hydrochlorothiazide) 12.5 Mg Tablet 25 Mg PO DAILY Glipizide 5 Mg Tablet 2.5 Mg PO DAILY Trelegy Ellipta 200-62.5-25 (Fluticasone/Umeclidin/Vilanter) 1 Each Blst.w.dev 1 Each IH DAILY Levothyroxine Sodium 100 Mcg Tablet 1 Tab PO DAILY LAST DOSE GIVEN: DATE: 07/30 TIME: 7 AM NEXT DOSE DUE: DATE: 07/31 TIME: 7 AM Omeprazole 20 Mg Tablet.dr 1 Tab PO DAILY LAST DOSE GIVEN: DATE: 07/30 TIME: 9 AM NEXT DOSE DUE: DATE: 07/31 TIME: 9 AM Allergies Allergies: Coded Allergies: No Known Medication Allergies (Verified Allergy, Unknown, 07/21/21) Physical Exam Lungs: Other (bilateral rhonchi) Heart: Normal S1, Normal S2 Abdomen: Normal bowel sounds, Soft Vitals VITALS Vital Signs Date Time Temp Pulse Resp B/P (MAP) Pulse Ox O2 Delivery O2 Flow Rate FiO2 07/21/21 07:34 Room Air 07/21/21 07:18 97.1 71 22 93 97.1 Assessment/Plan Assessment/Plan epigastric abd pain- differential includes;: PUD, Zuñiga's, malignancy, g astroparesis, GB disease, and/or hiatal hernia. R/B of egd discussed with patient who is wiling to proceed. BRYAN FELIPE MD Jul 21, 2021 08:46
[2021-07-21 09:35] VITALS: BP 131/66
== END | disposition home or self-care (01) ==
LOC: ENDOS 06:53
PROVIDERS: ATTEND Internal Medicine Gastroenterology
DX: R10.13 Epigastric pain (principal); K29.50 Unspecified chronic gastritis without bleeding; K21.9 Gastro-esophageal reflux disease without esophagitis; K31.89 Other diseases of stomach and duodenum; E03.9 Hypothyroidism, unspecified; M19.90 Unspecified osteoarthritis, unspecified site; F32.9 Major depressive disorder, single episode, unspecified; I11.0 Hypertensive heart disease with heart failure; I50.9 Heart failure, unspecified; E78.00 Pure hypercholesterolemia, unspecified; J43.9 Emphysema, unspecified; E11.9 Type 2 diabetes mellitus without complications; F41.9 Anxiety disorder, unspecified; M81.0 Age-related osteoporosis without current pathological fracture; F17.210 Nicotine dependence, cigarettes, uncomplicated; Z90.710 Acquired absence of both cervix and uterus; Z98.890 Other specified postprocedural states; Z79.899 Other long term (current) drug therapy; Z72.89 Other problems related to lifestyle; Z82.49 Family history of ischemic heart disease and other diseases of the circulatory system; Z83.3 Family history of diabetes mellitus
CPT/HCPCS: 43235; 94640; J2704